=== PATIENT | male | born 1965 | race Caucasian/White ===

== ENCOUNTER 2021-03-09 02:29 | Inpatient (IN) | payer BC ==
[2021-03-09 03:27] LABS: INR 0.9 (<1.2); Partial Thromboplastin Time 25.2 sec (22.0-30.0); Prothrombin Time 10.1 sec (9.0-12.0)
[2021-03-09 03:38] LABS: Albumin 3.6 g/dL (3.5-5.0); Calcium 8.9 mg/dL (8.4-10.2); Magnesium 1.9 mg/dL (1.6-2.3); Potassium 3.7 mmol/L (3.5-5.1); Total Bilirubin 0.4 mg/dL (0.2-1.3); Total Protein 6.1 g/dL (6.3-8.2)
[2021-03-09 03:42] LABS: Anisocytosis Slight; Basophils % (A) 0 %; Eosinophils # (A) 0.1 k/uL (0-0.7); Eosinophils % (A) 3 %; HCT 38.8 % (39.0-53.0); HGB 13.3 gm/dL (13.0-17.5); Lymphocytes # (A) 0.6 k/uL (1.0-4.8); Lymphocytes % (A) 14 %; MCH 29.7 pg (25.0-35.0); MCHC 34.2 g/dL (31.0-37.0); MCV 86.8 fL (80.0-100.0); Mean Platelet Volume 7.4; Monocytes # (A) 0.2 k/uL (0-1.0); Monocytes % (A) 4 %; Neutrophils # (A) 3.1 k/uL (1.3-7.7); Neutrophils % (A) 78 %; Platelet Count 144 k/uL (150-450); RBC 4.47 m/uL (4.30-5.90); RDW 16.4 % (11.5-15.5)
--- NOTE | 2021-03-09 04:22 | XR ---
EXAM: XR Chest, 2 Views CLINICAL HISTORY: Chest pain TECHNIQUE: Frontal and lateral views of the chest. COMPARISON: None FINDINGS: Lungs: Unremarkable. Pleural space: Unremarkable. Heart: Unremarkable. Mediastinum: Unremarkable. Bones/joints: Postsurgical changes within the thoracolumbar spine. IMPRESSION: No acute findings in the chest.
[2021-03-09] MEDS ORDERED: HEPARIN SODIUM 1,000 UN/ML (10ML VL) IV ONE (04:40)
[2021-03-09] MEDS ORDERED: HEPARIN SODIUM 1,000 UN/ML (10ML VL) IV PRN (04:40)
[2021-03-09] MEDS ORDERED: NITROGLYCERIN SL TABS 0.4 MG TAB SUBLINGUAL PRN ×3 (04:44→14:04)
[2021-03-09] MEDS ORDERED: HEPARIN SOD,PORK IN 0.45% NACL 25,000 UNIT in 0.45% NACL 1 250ML.BAG IV SCH (04:45)
[2021-03-09] MEDS: SODIUM CHLORIDE 0.9% 1,000 ML IV SCH ×2 (06:08→10:24)
[2021-03-09 06:22] LABS: Anisocytosis Slight; Basophils % (A) 0 %; Eosinophils # (A) 0.2 k/uL (0-0.7); Eosinophils % (A) 4 %; Lymphocytes % (A) 19 %; MCH 29.4 pg (25.0-35.0); MCHC 33.4 g/dL (31.0-37.0); MCV 88.2 fL (80.0-100.0); Mean Platelet Volume 6.5; Monocytes # (A) 0.2 k/uL (0-1.0); Monocytes % (A) 4 %; Neutrophils # (A) 3.8 k/uL (1.3-7.7); Neutrophils % (A) 72 %; Platelet Count 173 k/uL (150-450); RBC 4.76 m/uL (4.30-5.90); RDW 16.4 % (11.5-15.5); WBC 5.2 k/uL (3.8-10.6)
[2021-03-09 06:27] LABS: Partial Thromboplastin Time 60.1 sec (22.0-30.0); Prothrombin Time 10.5 sec (9.0-12.0)
--- NOTE | 2021-03-09 06:50 | ED ---
Chest Pain HPI - General Stated Complaint: Chest Pain Time Seen by Provider: 03/09/21 02:45 Source: patient, EMS Mode of arrival: ambulatory Limitations: no limitations - History of Present Illness Initial Comments: This patient is a 55-year-old man who presents to be evaluated for substernal chest pain. The patient states she had been watching television with family member about 12:30 when he developed chest pain and he felt a little clammy and possibly some nausea. The patient tried chewing an aspirin and when the symptoms did not go away they called EMS. EMS did administer nitroglycerin and the symptoms have completely resolved. He states that things lasted possibly up to 30 minutes. He states that he feels normal now. MD Complaint: chest pain -: hour(s) Onset: during rest Pain Location: substernal Pain Radiation: LUE Severity: moderate Quality: dull Consistency: now resolved Improves With: nitroglycerin, other (Aspirin) Worsens With: nothing Anginal Symptoms: nausea Treatments Prior to Arrival: aspirin, nitroglycerin - Related Data Home Medications Medication Instructions Recorded Confirmed Cabozantinib S-Malate [Cabometyx] 40 mg PO DAILY 03/09/21 03/09/21 HYDROmorphone HCL 4 mg PO Q3H PRN 03/09/21 03/09/21 Morphine Sulfate ER [Ms Contin] 60 mg PO BID PRN 03/09/21 03/09/21 NIFEdipine XL [Procardia XL] 60 mg PO DAILY 03/09/21 03/09/21 Sennosides [Senna] 8.6 mg PO DAILY PRN 03/09/21 03/09/21 methocarbamoL [Robaxin] 500 mg PO HS PRN 03/09/21 03/09/21 ondansetron HCL [Zofran] 8 mg PO Q8HR PRN 03/09/21 03/09/21 Previous Rx's Medication Instructions Recorded Aspirin 81 mg PO DAILY chew 03/10/21 Atorvastatin [Lipitor] 80 mg PO HS #90 tab 03/10/21 Metoprolol Tartrate [Lopressor] 12.5 mg PO BID #180 tab 03/10/21 Nitroglycerin Sl Tabs [Nitrostat] 0.4 mg SUBLINGUAL Q5M PRN #1 bottle 03/10/21 Prasugrel [Effient] 10 mg PO DAILY #90 tab 03/10/21 Allergies Allergy/AdvReac Type Severity Reaction Status Date / Time No Known Allergies Allergy Verified 03/09/21 08:59 Review of Systems ROS Statement: Those systems with pertinent positive or pertinent negative responses have been documented in the HPI. ROS Other: All systems not noted in ROS Statement are negative. Constitutional: Denies: fever, chills Respiratory: Denies: cough, dyspnea, wheezes, hemoptysis Cardiovascular: Reports: chest pain. Denies: palpitations, orthopnea, syncope Gastrointestinal: Reports: nausea. Denies: abdominal pain, vomiting, diarrhea Genitourinary: Denies: dysuria, hematuria Musculoskeletal: Denies: back pain Skin: Denies: rash Neurological: Denies: headache, weakness, numbness Past Medical History Past Medical History: Cancer Additional Past Medical History / Comment(s): Kidney CA with mets to the bone, tumors on the spine and hip and back and tailbone, currently on chemo and radiation History of Any Multi-Drug Resistant Organisms: None Reported Additional Past Surgical History / Comment(s): left nephrectomy, back surgery Past Anesthesia/Blood Transfusion Reactions: No Reported Reaction Past Psychological History: No Psychological Hx Reported Smoking Status: Former smoker General Exam Limitations: no limitations General appearance: alert, in no apparent distress Head exam: Present: atraumatic, normocephalic Eye exam: Present: normal appearance. Absent: scleral icterus, conjunctival injection Neck exam: Present: normal inspection Respiratory exam: Present: normal lung sounds bilaterally. Absent: respiratory distress, wheezes, rales, rhonchi, stridor, accessory muscle use Cardiovascular Exam: Present: regular rate, normal rhythm, normal heart sounds. Absent: systolic murmur, diastolic murmur, rubs, gallop GI/Abdominal exam: Present: soft. Absent: distended, tenderness, guarding, rebound, rigid, mass Extremities exam: Present: normal inspection, normal capillary refill. Absent: pedal edema, calf tenderness Back exam: Present: normal inspection. Absent: CVA tenderness (R), CVA tenderness (L) Neurological exam: Present: alert Skin exam: Present: warm, dry, intact, normal color. Absent: rash Course Vital Signs 03/09/21 03/09/21 02:45 04:56 Temperature 98.7 F Pulse Rate 81 65 Respiratory 20 18 Rate Blood Pressure 151/101 151/97 O2 Sat by Pulse 100 97 Oximetry Chest Pain MDM - MDM This patient is a 55-year-old man presenting with typical sounding chest pain, which was relieved with nitroglycerin and aspirin. He does have minimal elevation of troponin. Heparin is started. Case discussed with admitting physician and also with the steam hoist operator cheryl. Patient remained symptom-free through course in emergency department Critical Care Time Critical Care Time: Yes (30 minutes) Disposition Clinical Impression: Acute coronary syndrome Disposition: ADMITTED IP TO THIS HOSP Condition: Fair Is patient prescribed a controlled substance at d/c from ED?: No
[2021-03-09] MEDS ORDERED: HEPARIN SODIUM,PORCINE 10,000 UNIT in SODIUM CHLORIDE 0.9% 1,000 ML IRRIGATION PRN (07:00)
[2021-03-09] MEDS ORDERED: HEPARIN SODIUM,PORCINE 2,500 UNIT in SODIUM CHLORIDE 0.9% 250 ML IRRIGATION PRN (07:00)
[2021-03-09] MEDS ORDERED: METOPROLOL TARTRATE 25 MG TAB PO SCH (10:15)
[2021-03-09] MEDS ORDERED: ALPRAZolam 0.5 MG TAB PO PRN (11:53)
[2021-03-09] MEDS ORDERED: ASPIRIN 325 MG TAB PO STA (11:53)
[2021-03-09] MEDS ORDERED: ATORVASTATIN 80 MG TAB PO STA (11:53)
[2021-03-09] MEDS ORDERED: ALPRAZolam 0.25 MG TAB PO PRN (11:53)
[2021-03-09] MEDS ORDERED: SODIUM CHLORIDE 0.9% 1,000 ML in EMPTY BAG 1 BAG IV ONE (11:53)
--- NOTE | 2021-03-09 11:55 | P.CRDCN ---
History of Present Illness Consult date: 03/09/21 History of present illness: HISTORY OF PRESENT ILLNESS: This is a 55-year-old male with a past medical history significant for hypertension, former nicotine dependence, and kidney cancer with metastasis to the bone was currently undergoing radiation and oral chemotherapy. Patient does not follow with a nurse rn bsn. We have been asked to see the patient in consultation for chest pain. Patient examined at the bedside. Patient states yesterday he was sitting on the couch watching TV with his daughter when he began to experience tingling and numbness of his left arm. He then started having pain in the middle of his chest. He states the pain lasted for approximately 30 minutes but started to decrease in intensity after 15 minutes after taking aspirin. Patient received sublingual nitro via EMS in route to the hospital which relieved his pain. At the time of examination patient denies chest pain or pressure. EKG reveals sinus mechanism with T-wave inversions in inferior, anterior, and lateral leads. Right bundle branch block. Left anterior fasicular block. Chest xray negative for acute findings Laboratory data: WBC 5.2. Hemoglobin 14.0. Platelet count 176. Sodium 141. Potassium 3.7. BUN 14. Creatinine 1.29. Troponin 0.08. 0.379. 0.401. Current home cardiac medications include Procardia 60 mg daily REVIEW OF SYSTEMS: At the time of my exam: CONSTITUTIONAL: Denies fever or chills. HEENT: Denies blurred vision, vision changes, or eye pain. Denies hemoptysis CARDIOVASCULAR: Denies chest pain. Denies orthopnea. Denies PND. Denies palpitations RESPIRATORY: Denies shortness of breath. GASTROINTESTINAL: Denies abdominal pain. Denies nausea or vomiting. HEMATOLOGIC: Denies bleeding disorders. GENITOURINARY: Denies any blood in urine. SKIN: Denies pruitis. Denies rash. PHYSICAL EXAM: VITAL SIGNS: Reviewed. GENERAL: Well-developed in no acute distress. HEENT: Head is normocephalic. Pupils are equal, round. Sclerae anicteric. Mucous membranes of the mouth are moist. Neck supple. No JVD or thyromegaly LUNGS: Respirations even and unlabored. Lungs essentially clear to auscultation bilaterally. HEART: Regular rate and rhythm. S1 and S2 heard. ABDOMEN: Soft. Nondistended. Nontender. EXTREMITIES: Normal range of motion. No clubbing or cyanosis. Peripheral pulses intact. No lower extremity edema NEUROLOGIC: Awake and alert. Oriented x 3. ASSESSMENT: Non-STEMI Hypertension Kidney cancer with metastases to the bone, currently undergoing oral chemotherapy and radiation Chronic kidney disease, secondary to above Former nicotine dependence PLAN: Begin aspirin 81 mg Begin Lipitor 80 mg. Obtain lipid panel. Begin metoprolol 12.5 mg twice a day. Hold for heart rate less than 60. Hold Procardia (home medication). Continue IV heparin Obtain 2-D echo to assess cardiac structure and function Patient requesting to speak with Sample Builder regarding heart cath. Will consult Dr. Beltre. Patient to undergo cardiac catheterization today with Dr. Fajardo Further recommendations pending patient's course Nurse practitioner note has been reviewed by physician. Signing provider agrees with the documented findings, assessment, and plan of care. Past Medical History Past Medical History: Cancer Additional Past Medical History / Comment(s): Kidney CA with mets to the bone, tumors on the spine and hip and back and tailbone, currently on chemo and radiation History of Any Multi-Drug Resistant Organisms: None Reported Additional Past Surgical History / Comment(s): left nephrectomy, back surgery Past Anesthesia/Blood Transfusion Reactions: No Reported Reaction Past Psychological History: No Psychological Hx Reported Smoking Status: Former smoker Medications and Allergies Home Medications Medication Instructions Recorded Confirmed Type Cabozantinib S-Malate [Cabometyx] 40 mg PO DAILY 03/09/21 03/09/21 History HYDROmorphone HCL 4 mg PO Q3H PRN 03/09/21 03/09/21 History Morphine Sulfate ER [Ms Contin] 60 mg PO BID PRN 03/09/21 03/09/21 History NIFEdipine XL [Procardia Xl] 60 mg PO DAILY 03/09/21 03/09/21 History Sennosides [Senna] 8.6 mg PO DAILY PRN 03/09/21 03/09/21 History methocarbamoL [Robaxin] 500 mg PO HS PRN 03/09/21 03/09/21 History ondansetron HCL [Zofran] 8 mg PO Q8HR PRN 03/09/21 03/09/21 History Allergies Allergy/AdvReac Type Severity Reaction Status Date / Time No Known Allergies Allergy Verified 03/09/21 08:59 Physical Exam Vitals: Vital Signs Temp Pulse Pulse Resp BP BP Pulse Ox 03/09/21 08:00 97.8 F 54 L 18 156/95 100 03/09/21 06:24 65 18 03/09/21 06:13 97.5 F L 65 18 169/99 100 03/09/21 04:56 65 18 151/97 97 03/09/21 02:45 98.7 F 81 20 151/101 100 Intake and Output 03/08/21 03/09/21 03/09/21 22:59 06:59 14:59 Other: Voiding Method Bedside Commode # Voids 1 Weight 96.8 kg Results 03/09/21 06:06 03/09/21 03:04 Cardiac Enzymes 03/09/21 03/09/21 03/09/21 Range/Units 03:04 03:04 06:06 AST 34 (17-59) U/L Troponin I 0.081 H* 0.379 H* (0.000-0.034) ng/mL 03/09/21 Range/Units 07:40 AST (17-59) U/L Troponin I 0.401 H* (0.000-0.034) ng/mL Coagulation 03/09/21 03/09/21 Range/Units 03:04 06:06 PT 10.1 10.5 (9.0-12.0) sec APTT 25.2 60.1 H (22.0-30.0) sec CBC 03/09/21 03/09/21 Range/Units 03:04 06:06 WBC 4.0 5.2 (3.8-10.6) k/uL RBC 4.47 4.76 (4.30-5.90) m/uL Hgb 13.3 14.0 (13.0-17.5) gm/dL Hct 38.8 L 42.0 (39.0-53.0) % Plt Count 144 L 173 (150-450) k/uL Comprehensive Metabolic Panel 03/09/21 Range/Units 03:04 Sodium 141 (137-145) mmol/L Potassium 3.7 (3.5-5.1) mmol/L Chloride 113 H (98-107) mmol/L Carbon Dioxide 21 L (22-30) mmol/L BUN 14 (9-20) mg/dL Creatinine 1.29 H (0.66-1.25) mg/dL Glucose 97 (74-99) mg/dL Calcium 8.9 (8.4-10.2) mg/dL AST 34 (17-59) U/L ALT 31 (4-49) U/L Alkaline Phosphatase 111 (38-126) U/L Total Protein 6.1 L (6.3-8.2) g/dL Albumin 3.6 (3.5-5.0) g/dL Current Medications Generic Name Dose Route Start Last Admin Trade Name Shamarq PRN Reason Stop Dose Admin Aspirin 81 mg 03/10/21 09:00 Aspirin 81 Mg PO DAILY JOSEFA Atorvastatin Calcium 80 mg 03/09/21 21:00 Atorvastatin 80 Mg Tab PO HS JOSEFA Heparin Sodium (Porcine) 0 unit 03/09/21 04:40 Heparin Sodium 1,000 Un/Ml (10ml Vl) IV PER PROTOCOL PRN Low PTT Protocol Heparin Sodium/Sodium Chloride 250 mls @ 10 mls/hr 03/09/21 04:45 03/09/21 04:52 25,000 unit/ Sodium Chloride IV 10.4982 units/kg/hr .Q24H JOSEFA 10 mls/hr Administration Protocol 10.4982 UNITS/KG/HR Sodium Chloride 1,000 mls @ 100 mls/hr 03/09/21 04:45 03/09/21 10:24 Saline 0.9% IV Not Given .Q10H JOSEFA Metoprolol Tartrate 12.5 mg 03/09/21 21:00 Metoprolol Tartrate 12.5 Mg Tab PO BID JOSEFA Nitroglycerin 0.4 mg 03/09/21 04:44 Nitroglycerin Sl Tabs 0.4 Mg Tab SUBLINGUAL Q5M PRN Chest Pain Intake and Output 03/08/21 03/09/21 03/09/21 22:59 06:59 14:59 Other: Voiding Method Bedside Commode # Voids 1 Weight 96.8 kg 03/09/21 06:06 03/09/21 03:04
[2021-03-09] MEDS ORDERED: VERAPAMIL 2.5 MG/ML 2 ML AMP ONE (12:03)
[2021-03-09] MEDS ORDERED: LIDOCAINE 1% INJ 10MG/ML (20 ML MDV) ONE (12:04)
[2021-03-09] MEDS ORDERED: HEPARIN SODIUM 1,000 UN/ML (10ML VL) ONE (12:26)
[2021-03-09] MEDS ORDERED: fentaNYL (PF) 50 MCG/ML 2 ML AMP ONE (12:27)
[2021-03-09] MEDS ORDERED: IV FLUID CONTINUATION 1,000 ML IV ONE (12:31)
[2021-03-09] MEDS: MIDAZOLAM 2 MG/2 ML VIAL IVP ONE ×2 (12:47→13:22)
[2021-03-09] MEDS ORDERED: fentaNYL (PF) 50 MCG/ML 2 ML AMP IVP ONE (12:47)
[2021-03-09] MEDS ORDERED: LIDOCAINE 1% INJ 10MG/ML (20 ML MDV) SQ ONE (12:49)
[2021-03-09] MEDS: VERAPAMIL SYRINGE (5 MG/10 ML) INTRAARTER ONE ×2 (12:52→13:58)
[2021-03-09] MEDS: HEPARIN SODIUM 1,000 UN/ML (10ML VL) IV ONE ×2 (12:54→13:20)
[2021-03-09] MEDS: NITROGLYCERIN 1000MCG/10ML SYRINGE INTRACORON ONE ×3 (12:59→13:56)
[2021-03-09] MEDS ORDERED: CLOPIDOGREL 75 MG TAB ONE (13:31)
[2021-03-09] MEDS ORDERED: PRASUGREL 10 MG TAB ONE (13:32)
[2021-03-09] MEDS ORDERED: PRASUGREL 10 MG TAB PO ONE (13:34)
[2021-03-09] MEDS ORDERED: IOPAMIDOL-370 125ML BTL INJ ONE (13:48)
[2021-03-09] MEDS ORDERED: IOPAMIDOL-370 100ML BTL INJ ONE (13:58)
[2021-03-09] MEDS ORDERED: MAG HYDROX/AL HYDROX/SIMETH 30 ML CUP PO PRN (14:04)
[2021-03-09] MEDS ORDERED: ZOLPIDEM 5 MG TAB PO PRN (14:04)
[2021-03-09] MEDS ORDERED: ATROPINE SULFATE 0.1 MG/ML 10ML SYRINGE IV PRN (14:04)
[2021-03-09] MEDS ORDERED: RX INFO: IV CONTRAST WAS GIVEN 1 EACH MISC MISCELLANE PRN (14:04)
[2021-03-09] MEDS ORDERED: SENNOSIDES 8.6 MG TAB PO PRN (15:16)
[2021-03-09] MEDS ORDERED: HYDROmorphone 4 MG TABLET PO PRN (15:16)
[2021-03-09] MEDS ORDERED: methocarbamoL 500 MG TAB PO PRN (15:16)
[2021-03-09] MEDS ORDERED: ONDANSETRON 4 MG TAB PO PRN (15:16)
--- NOTE | 2021-03-09 15:20 | PTCA ---
PERCUTANEOUSTRANS CORORONARY ANGIOGRAPHY DATE OF SERVICE: 03/09/2021 PERFORMING PHYSICIAN: Haile Bauer MD. PROCEDURE PERFORMED: 1. Successful stenting of the proximal RCA using 3.0 x 18 mm Xience drug-eluting stent with an excellent angiographic results. 2. Successful stenting of the first obtuse marginal branch of the left circumflex using 4.0 x 28 mm Xience drug-eluting stent with an excellent angiographic results. INDICATION: This is a 55-year-old gentleman who presented to the hospital with chest discomfort and was diagnosed with acute coronary syndrome. He underwent an emergent heart catheterization by Dr. Fajardo and was found to have critical 2 vessel coronary artery disease involving the RCA and LCX. The decision was toward the percutaneous coronary intervention. APPROACH: Right radial artery. COMPLICATION: None. LEVEL OF SEDATION: Moderate with sedation length of 39 minutes. PROCEDURE DESCRIPTION: Please refer to diagnostic heart catheterization that was performed by Dr. Fajardo earlier today. Anticoagulation was continued using heparin with continuous ACT monitoring throughout the procedure. After that, I did engage the RCA using JR4 3.5 short tip guide. After that, the RCA was wired using a run-through wire did direct stenting on the lesion in the RCA using 3.0 x 18 mm Xience drug-eluting stent where the stent was positioned under fluoroscopy guidance and deployed under a 16 atmospheres for 20 seconds. The stent was post- dilated using 3.5 mm NC balloon. The final angiogram showing excellent angiographic results. For the lesion in the left circumflex, I did engage the left main using an XB 3 guide. I did wire the left circumflex using a run-through wire. I did balloon angioplasty using 3.5 x 12 x 15 mm balloon by attempting advancing 4 0 x 28 mm stent was unsuccessful. I did use the ( ) with that. I was able to get the stent to the mid left circumflex where the stent was positioned under fluoroscopy guidance and deployed under its nominal pressure. The following angiogram showed excellent angiographic results and the procedure was completed without any complication. POST PROCEDURE MANAGEMENT: 1. Dual anti-platelet therapy. 2. Aggressive cholesterol control. 3. Risk factor modifications. 4. Follow up with the patient. MMODL / IJN: [id number] /
[2021-03-09] MEDS: NON FORMULARY DRUG (Cabozantinib S-Malate [Cabometyx] 40 MG Tablet) PO SCH (15:32)
[2021-03-09] MEDS: HYDROmorphone 2 MG TAB PO PRN ×2 (15:51→20:47)
[2021-03-09 19:57] VITALS: RESP 16
[2021-03-09] MEDS: METOPROLOL TARTRATE 12.5 MG TAB PO SCH (20:00)
[2021-03-09] MEDS: MORPHINE SULFATE ER 60 MG TABLET PO PRN (20:01)
[2021-03-09] MEDS ORDERED: TEMAZEPAM 15 MG CAP PO PRN (20:52)
[2021-03-09] MEDS ORDERED: HYDROcodone/APAP 5-325MG 1 EACH TAB PO PRN (20:52)
[2021-03-09] MEDS ORDERED: ATORVASTATIN 80 MG TAB PO SCH (21:00)
[2021-03-09 22:29] LABS: Appearance,Urine Clear (Clear); Bilirubin,Urine Negative (Negative); Blood,Urine Negative (Negative); Color,Urine Yellow; Glucose,Urine (UA) Negative (Negative); Ketones,Urine Negative (Negative); Leukocyte Esterase,Urine Negative (Negative); Nitrite,Urine Negative (Negative); PH, Urine 6.5 (5.0-8.0); Protein,Urine Negative (Negative); Specific Gravity,Urine 1.027 (1.001-1.035); Urobilinogen,Urine <2.0 mg/dL (<2.0)
[2021-03-09 23:31] VITALS: TEMP 98.5
--- NOTE | 2021-03-10 06:14 | HP ---
HISTORY AND PHYSICAL CHIEF COMPLAINT: Chest pain. HISTORY OF PRESENT ILLNESS: This 55-year-old gentleman with a past medical history of kidney cancer with mets to the bone, tumor of the spine and back, being followed by primary physician elsewhere, was living in [place]. The patient had severe substernal pain 10/10 in intensity while watching the television with the family at 12:30 and the patient felt clammy, had some nausea. The EMS was called and subsequently nitroglycerin administered and the patient was taken to [facility] and and admitted for further evaluation and treatment. After admission, the patient was found to have a creatinine of 1.29. Troponin was elevated at 0.081 and 0.379 and 0.401. Those were consistent with non-ST- segment elevation myocardial infarction. The patient underwent cardiac catheterization. Cardiac cath showed three vessel coronary disease. The patient underwent stenting of the proximal RCA and as well as first obtuse marginal of the left circumflex. The patient was admitted for evaluation and treatment. The patient is recommended dual antiplatelet treatment with aggressive cholesterol reduction, also risk factor modification as well. There is no history of any fever, rigors, chills at this time. PAST MEDICAL HISTORY: History of kidney cancer, nephrectomy, tumors in the spine. MEDICATIONS PRIOR TO ADMISSION: Include Robaxin, Zofran, Senna, hydromorphone, nifedipine, MS Contin. ALLERGIES: None known. FAMILY HISTORY: No history of heart disease or strokes in the family. SOCIAL HISTORY: Previous history of smoking. REVIEW OF SYSTEMS: ENT: No diminished hearing. CARDIOVASCULAR: As mentioned. RESPIRATION: As mentioned. GI: No nausea. : No dysuria. MUSCULOSKELETAL: No asthma or hayfever. MUSCULOSKELETAL As mentioned earlier. HEMATOLOGY/ONCOLOGY: No history of anemia ENDOCRINE: No history of diabetes or hypothyroidism. CONSTITUTIONAL: As mentioned earlier. DERMATOLOGY: Negative. RHEUMATOLOGY: Negative. PSYCHIATRIC: Stable. PHYSICAL EXAMINATION: Alert and oriented x3. Pulse 54, blood pressure 136/84, respirations 16, temperature 98.7, pulse ox 99% in room air. HEENT: Unremarkable. CARDIOVASCULAR: Unremarkable. RESPIRATORY: Breath sounds diminished in the bases. No rhonchi no crackles. ABDOMEN: Soft, nontender. No mass. LEGS: No edema. NERVOUS SYSTEM: Higher functions as mentioned earlier. Moves all four limbs. LYMPHATICS: No lymph nodes. SKIN: No ulcer, no rash and no bleeding. JOINTS: No active arthropathy. LABS: Troponin 0.081, 0.379, and 0.401. Other labs showed creatinine of 1.29 ASSESSMENT: 1. Acute [id number]-elevation myocardial infarction with troponin 0.401, status post cardiac catheterization, stenting of the proximal RCA and as well as first obtuse marginal branch of the left circumflex. 2. Increased creatinine with possible chronic kidney disease stage 3. 3. Increased chloride. 4. Mild thrombocytopenia. 5. History of kidney cancer with metastases to the bone. 6. Currently on chemo and radiation, history of left nephrectomy. 7. History of back surgery DJD. 8. Remote history of nicotine dependence. 9. Hypertension and bradycardia. RECOMMENDATIONS: This 55-year-old gentleman presented with multiple complex medical issues, recommend to continue current management and treatment. Continue with dual antiplatelet agents. Continue with beta blockers, SELINA inhibitors closely and follow with Cardiology. Lipitor. Otherwise prognosis guarded because of multiple complex medical problems. Nephrology will be consulted because of the concerns of kidney failure. Also recommend close followup with primary physician in the outpatient setting. Repeat labs will be arranged for tomorrow. See orders for details. Symptomatic treatment also will be provided. Home medications also will be continued. MMODL / IJN: [id number] /
[2021-03-10 07:31] LABS: Calcium 8.6 mg/dL (8.4-10.2); Potassium 3.8 mmol/L (3.5-5.1)
[2021-03-10 07:50] LABS: Anisocytosis Slight; Basophils % (A) 0 %; Eosinophils # (A) 0.2 k/uL (0-0.7); Eosinophils % (A) 5 %; HCT 38.9 % (39.0-53.0); HGB 13.3 gm/dL (13.0-17.5); Lymphocytes # (A) 0.6 k/uL (1.0-4.8); Lymphocytes % (A) 16 %; MCHC 34.3 g/dL (31.0-37.0); MCV 87.4 fL (80.0-100.0); Mean Platelet Volume 7.3; Monocytes # (A) 0.2 k/uL (0-1.0); Monocytes % (A) 4 %; Neutrophils # (A) 2.6 k/uL (1.3-7.7); Neutrophils % (A) 74 %; Platelet Count 148 k/uL (150-450); RBC 4.45 m/uL (4.30-5.90); RDW 16.4 % (11.5-15.5); WBC 3.5 k/uL (3.8-10.6)
[2021-03-10] MEDS: MORPHINE SULFATE ER 60 MG TABLET PO PRN (08:11)
[2021-03-10] MEDS: HYDROmorphone 2 MG TAB PO PRN (08:12)
[2021-03-10] MEDS: METOPROLOL TARTRATE 12.5 MG TAB PO SCH (08:15)
[2021-03-10] MEDS: NON FORMULARY DRUG (Cabozantinib S-Malate [Cabometyx] 40 MG Tablet) PO SCH ×2 (08:17→08:23)
[2021-03-10 08:26] LABS: Prothrombin Time 10.5 sec (9.0-12.0)
--- NOTE | 2021-03-10 08:58 | P.NPCON ---
History of Present Illness - Reason for Consult acute renal failure - History of Present Illness Reason for consultation: Acute kidney injury History of present illness: Patient is a 55-year-old male seen in renal consultation for acute kidney injury. Patient's creatinine on admission was 1.29 and is 1.14 today. Patient states he has history of renal cell carcinoma and underwent left-sided nephrectomy several years ago. He presented to the hospital with chest pain and underwent cardiac catheterization yesterday with stents placed to the RCA and circumflex. Oral intake is good. No active chest pain or shortness of breath. Good urine output. No hematuria or dysuria. No history of diabetes. Denies use of nonsteroidals. Denies family history of renal disease. No edema. Hemodynamically stable. UA benign. Patient states he does not follow with nephrology outpatient. He still undergoing radiation therapy due to metastatic disease to his bone. Vital signs are stable. General: The patient appeared well nourished and normally developed. HEENT: Head exam is unremarkable. Neck is without jugular venous distension. LUNGS: Breath sounds decreased. HEART: Rate and Rhythm are regular. ABDOMEN: Soft, no distention. EXTREMITITES: No edema. Past Medical History Past Medical History: Cancer Additional Past Medical History / Comment(s): Kidney CA with mets to the bone, tumors on the spine and hip and back and tailbone, currently on chemo and radiation History of Any Multi-Drug Resistant Organisms: None Reported Additional Past Surgical History / Comment(s): left nephrectomy, back surgery Past Anesthesia/Blood Transfusion Reactions: No Reported Reaction Past Psychological History: No Psychological Hx Reported Smoking Status: Former smoker Medications and Allergies Home Medications Medication Instructions Recorded Confirmed Type Cabozantinib S-Malate [Cabometyx] 40 mg PO DAILY 03/09/21 03/09/21 History HYDROmorphone HCL 4 mg PO Q3H PRN 03/09/21 03/09/21 History Morphine Sulfate ER [Ms Contin] 60 mg PO BID PRN 03/09/21 03/09/21 History NIFEdipine XL [Procardia Xl] 60 mg PO DAILY 03/09/21 03/09/21 History Sennosides [Senna] 8.6 mg PO DAILY PRN 03/09/21 03/09/21 History methocarbamoL [Robaxin] 500 mg PO HS PRN 03/09/21 03/09/21 History ondansetron HCL [Zofran] 8 mg PO Q8HR PRN 03/09/21 03/09/21 History Allergies Allergy/AdvReac Type Severity Reaction Status Date / Time No Known Allergies Allergy Verified 03/09/21 08:59 Physical Exam Vitals: Vital Signs Temp Pulse Resp BP BP Pulse Ox 03/10/21 04:00 77 16 108/75 99 03/09/21 23:30 98.5 F 62 16 150/95 99 03/09/21 19:56 98.7 F 68 16 146/99 99 03/09/21 16:49 54 L 18 156/84 99 03/09/21 15:49 156/95 03/09/21 15:19 166/101 03/09/21 14:49 169/99 03/09/21 14:47 97.7 F 51 L 18 175/101 99 03/09/21 14:34 168/98 03/09/21 14:19 97.7 F 51 L 18 175/101 99 Intake and Output 03/09/21 03/10/21 03/10/21 22:59 06:59 14:59 Intake Total 240 Output Total 300 500 Balance -60 -500 Intake: Oral 240 Output: Urine 300 500 Other: # Voids 1 Weight 96.2 kg Results - Lab Results Most recent lab results Calcium 8.6 mg/dL (8.4-10.2) 03/10/21 05:09 Magnesium 1.9 mg/dL (1.6-2.3) 03/09/21 03:04 03/10/21 05:09 03/10/21 05:09 Assessment and Plan Plan: Assessment: 1. Acute kidney injury mostly prerenal improved with IV hydration. He did receive IV contrast on March 09. Threatened and 1.14 today. UA benign. 2. Chronic kidney disease stage II secondary to solitary kidney. 3. Status post left nephrectomy due to renal cell carcinoma. 4. Non-ST elevated myocardial infarction status post cardiac catheterization with stent placement to the RCA and circumflex. 5. Metabolic acidosis secondary to acute kidney injury and IV fluids. 6. Hypertension with chronic kidney disease. Plan: Hep-Lock IV fluids. Encourage oral intake. Avoid nephrotoxins. Risk of worsening renal function, potentially requiring renal replacement therapy, post-IV contrast exposure was discussed with the patient. Advised patient to follow-up outpatient in 1-2 weeks post discharge. Repeat BMP 2-3 days postdischarge. Thank you for the consultation. I will continue to follow the patient with you during his hospital stay.
[2021-03-10] MEDS ORDERED: PRASUGREL 10 MG TAB PO SCH (09:00)
[2021-03-10] MEDS ORDERED: ASPIRIN 325 MG TAB PO SCH (09:00)
[2021-03-10] MEDS ORDERED: ASPIRIN 81 MG PO SCH (09:00)
--- NOTE | 2021-03-10 09:32 | P.PN ---
Subjective This is a pleasant 55-year-old male past medical history significant for hypertension, kidney cancer with mets to the spine currently undergoing chemotherapy and radiation and former nicotine dependence. He does not follow regularly with a aerologist. He underwent successful PCI to the OM branch and proximal RCA with Dr. Bauer. He is seen and examined sitting up in bed in no acute distress. He denies chest pain, shortness of breath, dizziness or palpitations. Blood pressure 108/75 heart rate 77 afebrile maintaining oxygen saturation on room air. Laboratory data reviewed, WBC 3.5, hemoglobin 13.3, platelets 148, sodium 139, potassium 3.8 and creatinine 1.14. Repeat EKG this morning reveals sinus mechanism with right bundle branch block and left anterior fascicular block T-wave inversions noted in the inferior lateral leads. GENERAL: Well-appearing, well-nourished and in no acute distress. NECK: Supple without JVD or thyromegaly. LUNGS: Breath sounds clear to auscultation bilaterally. Respiration equal and unlabored. No wheezes, rales or rhonchi. HEART: Regular rate and rhythm without murmurs, rubs or gallops. S1 and S2 heard. EXTREMITIES: Normal range of motion, no edema. No clubbing or cyanosis. Peripheral pulses intact. Right radial access site soft, non-tender with no bleeding or ecchymosis. ASSESSMENT NSTEMI Left renal carcinoma s/p nephrectomy Hypertension Acute kidney injury Former nicotine dependence PLAN Maintained on dual anti-platelet therapy with effient and asa. Echo has been ordered and will be reviewed. Once echo has been reviewed, he can likely be discharged home this afternoon. Cardiac prescriptions have been sent to the pharmacy. We will ask case management to check his coverage of effient. Follow up with Dr. Fajardo in 1 week. Nurse Practitioner note has been reviewed, I agree with a documented findings and plan of care. Patient was seen and examined. Objective - Vital Signs Vital signs: Vital Signs Temp 98.5 F 03/09/21 23:30 Pulse 77 03/10/21 04:00 Resp 16 03/10/21 04:00 BP 108/75 03/10/21 04:00 Pulse Ox 99 03/10/21 04:00 Intake & Output 03/09/21 03/10/21 03/10/21 18:59 06:59 18:59 Intake Total 340 240 Output Total 800 275 Balance 340 -800 -35 Weight 96.2 kg Intake: IV 100 Oral 240 240 Output: Urine 800 275 Other: # Voids 1 - Labs CBC & Chem 7: 03/10/21 05:09 03/10/21 05:09 Labs: Abnormal Lab Results - Last 24 Hours (Table) 03/09/21 03/10/21 03/10/21 Range/Units 07:40 05:09 05:09 WBC 3.5 L (3.8-10.6) k/uL Hct 38.9 L (39.0-53.0) % RDW 16.4 H (11.5-15.5) % Plt Count 148 L (150-450) k/uL Lymphocytes # 0.6 L (1.0-4.8) k/uL Chloride 110 H (98-107) mmol/L Carbon Dioxide 20 L (22-30) mmol/L Troponin I 0.401 H* (0.000-0.034) ng/mL
[2021-03-10 11:31] VITALS: BP 118/78; PULSE 71
[2021-03-10 12:32] LABS: Chol/HDL Ratio 7.03; LDL Cholesterol,Calculated 137.4 mg/dL (0.0-131.0); VLDL Calculation 49.6 mg/dL (5.00-40.00)
[2021-03-10 13:10] VITALS: BMI 27.2
--- NOTE | 2021-03-10 23:12 | DS ---
DISCHARGE SUMMARY DATE OF SERVICE: 03/10/2021 FINAL DIAGNOSES: 1. Acute hdo-UC-sdjtorq-elevation myocardial infarction with troponin 0.401, status post cardiac catheterization and stenting of the proximal RCA as well as the first obtuse marginal of the left circumflex. 2. Increased creatinine with possible chronic kidney stage 3. 3. Increased chloride. 4. Mild thrombocytopenia. 5. History of kidney cancer with metastasis of the bone. 6. Currently on chemo and radiation. 7. History of left nephrectomy. 8. History of back surgery, degenerative joint disease. 9. Remote history of nicotine dependence. 10.Hypertension. 11.Bradycardia. DISCHARGE DISPOSITION: The patient will be discharged in stable condition with guarded prognosis after clearance from Cardiology. Patient is extremely keen on going home. HISTORY OF PRESENT ILLNESS: This 55-year-old gentleman with a past medical history of multiple medical problems including chest pain, acute non ST-segment myocardial infarction. Cardiology performed cardiac catheterization and stenting x2, as I mentioned earlier. Please refer to the full Cardiology report for further details. Otherwise the patient also seen by Dr. Goetz because of concerns of renal function, which is stable at this time. Creatinine 1.14. Cholesterol is elevated. On exam, vitals are stable. Cardiovascular S1, S2. Abdomen soft. Nervous system: No focal deficits. DISCHARGE INSTRUCTIONS AND MEDICATIONS: 1. Discharge diet is cardiac diet. 2. Activity limited until followup. 3. Follow up with Dr. das in 1-2 days. 4. Follow up with Cardiology as recommended. 5. Follow up with Nephrology as recommended. 6. Cabozantinib 40 mg tab daily. 7. Hydromorphone p.r.n. 8. MS Contin 60 mg p.o. b.i.d. p.r.n. 9. Nifedipine XL 60 mg p.o. daily. 10.Robaxin 500 mg q.h.s. 11.Senna 8.6 mg p.o. daily. 12.Zofran 8 mg q.8h. 13.Aspirin 81 mg p.o. daily. 14.Effient 10 mg p.o. daily. 15.Lipitor 80 mg q.h.s. 16.Lopressor 12.5 mg p.o. b.i.d. 17.Nitrostat 0.4 mg p.r.n. Once again the patient discharged in stable condition with guarded prognosis. MMODL / IJN: [id number] / MTDD
--- NOTE | 2021-03-11 07:38 | ECHOF ---
Referral Reason:LV function MEASUREMENTS -------- HEIGHT: 182.9 cm WEIGHT: 96.2 kg BP: IVSd: 1.2 cm (0.6 - 1.1) LVIDd: 2.8 cm (3.9 - 5.3) LVPWd: 1.5 cm (0.6 - 1.1) IVSs: 1.6 cm LVIDs: 1.8 cm LVPWs: 1.6 cm Ao Diam: 3.9 cm (2.0 - 3.7) AV Cusp: 1.7 cm (1.5 - 2.6) LA Diam: 2.3 cm (2.7 - 3.8) MV EXCURSION: 18.048 mm (> 18.000) MV EF SLOPE: 55 mm/s (70 - 150) EPSS: 1.7 cm MV E Alvin: 0.61 m/s MV DecT: 270 ms MV A Alvin: 0.76 m/s MV E/A Ratio: 0.81 RAP: 5.00 mmHg RVSP: 7.85 mmHg FINDINGS -------- This was a technically adequate study. The left ventricular size is normal. There is mild concentric left ventricular hypertrophy. Overa ll left ventricular systolic function is mildly impaired with, an EF between 45 - 50 %. Basal infer ior LV wall motion is hypokinetic. Basal inferoseptal LV wall motion is hypokinetic. The right ventricle is normal in size. The left atrial size is normal. The right atrial size is normal. The aortic valve is trileaflet and appears structurally normal. The mitral valve is normal. There is trace mitral regurgitation. The tricuspid valve appears structurally normal. Trace tricuspid regurgitation present. Right gwen tricular systolic pressure is normal at < 35 mmHg. There is no pulmonic regurgitation present. The aortic root size is normal. IVC Not well visulized. There is no pericardial effusion. CONCLUSIONS -------- 1. The left ventricular size is normal. 2. There is mild concentric left ventricular hypertrophy. 3. Overall left ventricular systolic function is mildly impaired with, an EF between 45 - 50 %. 4. Basal inferior LV wall motion is hypokinetic. 5. Basal inferoseptal LV wall motion is hypokinetic. 6. There is trace mitral regurgitation. 7. Trace tricuspid regurgitation present. 8. There is no pericardial effusion. [employer] COACH: Lavonne Lyons RDCS
== END 2021-03-10 17:44 | disposition home or self-care (01) | DRG 247 ==
LOC: EC 02:29 → 3SCARD 04:44
PROVIDERS: ADMIT Hospitalist; ATTEND Hospitalist
PROC: 027135Z Dilation of Coronary Artery, Two Arteries with Two Drug-eluting Intraluminal Devices, Percutaneous Approach (ICD-10-PCS; principal; 2021-03-09 11:56)
PROC: B2111ZZ Fluoroscopy of Multiple Coronary Arteries using Low Osmolar Contrast (ICD-10-PCS; principal; 2021-03-09 11:56)
PROC: 4A023N7 Measurement of Cardiac Sampling and Pressure, Left Heart, Percutaneous Approach (ICD-10-PCS; principal; 2021-03-09 11:56)
DX: I21.4 Non-ST elevation (NSTEMI) myocardial infarction (principal); C79.51 Secondary malignant neoplasm of bone; C64.9 Malignant neoplasm of unspecified kidney, except renal pelvis; N17.9 Acute kidney failure, unspecified; I25.10 Atherosclerotic heart disease of native coronary artery without angina pectoris; R00.1 Bradycardia, unspecified; I12.9 Hypertensive chronic kidney disease with stage 1 through stage 4 chronic kidney disease, or unspecified chronic kidney disease; N18.2 Chronic kidney disease, stage 2 (mild); I45.10 Unspecified right bundle-branch block; M19.90 Unspecified osteoarthritis, unspecified site; Z90.5 Acquired absence of kidney; Z79.899 Other long term (current) drug therapy; Z85.528 Personal history of other malignant neoplasm of kidney; Z20.822 Contact with and (suspected) exposure to COVID-19; Z87.891 Personal history of nicotine dependence; Z87.442 Personal history of urinary calculi
CPT/HCPCS: 36415; 71046; 80048; 80053; 80061; 81003; 83735; 84484; 85025; 85610; 85730; 87635; 93005; 93306; 93458